=== PATIENT | male | born 1985 | race Caucasian/White ===

== ENCOUNTER 2018-10-22 19:19 | Emergency (ER) | payer BC ==
--- OUTSIDE RECORDS SUMMARY | 2018-10-22 19:42 | XMS REPORT ---
:1985 Author Organization [facility] Team Providers Name Role Phone Mauro Chino Unavailable Unavailable PROBLEMS Unknown Problems ALLERGIES No Information ENCOUNTERS Encounter Location Date Diagnosis [facility] [address] [place], [place] [address] [facility] [address] [facility] [place], [place] [address] [facility] [address] [place] [address] Sep, [place] [address] [facility] [address] [place] [address] [place] [address] [facility] [address] [place], [place] [address] [facility] [address] [place], [place], [place] [address] left, initial encounter T15.92XA and Foreign body, eye, right, initial encounter T15.91XA IMMUNIZATIONS No Known Immunizations SOCIAL HISTORY Never Assessed REASON FOR REFERRAL FUNCTIONAL STATUS PLAN OF CARE VITAL SIGNS MEDICATIONS Unknown Medications PROCEDURES Procedure Date Ordered Result Body Site LTD ORAL EVALUATION-PROBLEM FOCUS October 06, 2018 RESULTS No Results REASON FOR VISIT Insurance Providers [facility] Member Patient Patient Patient Patient Patient Subscriber Subscriber Subscriber Group Insurance Plan Plan Plan Plan ID Relationship Address Phone Name Date of ID Name Date of No Type Insurance Insurance Insurance Coverage to Subscriber Address Phone Name Dates Medicaid [id number] [phone] Medicaid self [place] [id number] [address] [facility] [address] [facility] [address] [address] Blue self [place] [id number] [place] [id number] Choice Opt [place] [address] [facility] [address] Blue [phone] Blue self [place] [id number] Choice Opt 9255 Attn 83 Choice Opt [place] [id number] [place] [id number] [place] [facility] [address]
[2018-10-22] MEDS ORDERED: Ondansetron ODT TAB* 4 MG PO ONE (21:22)
[2018-10-22] MEDS ORDERED: Ketorolac INJ* 30 MG/ML 1 ML VIAL IM ONE (21:22)
--- NOTE | 2018-10-22 21:43 | ED ---
Headache - HPI Summary HPI Summary: 33-year-old male presents with complaints of headache. States the headache has been intermittent over the past 3 days but today has become persistent. Describes the headache as a "tightness" that begins in the back of his head and wraps over the top. Associated with some mild nausea. Rates as a 5/10. Has taken ibuprofen 200 mg 1 dose with no relief. Denies fever, chills, URI symptoms, dizziness, lightheadedness, visual disturbances, slurred or difficulty speaking, weakness, numbness, or tingling of the extremities, abdominal pain, or vomiting. - History Of Current Complaint Chief Complaint: EDHeadache Stated Complaint: SHARP PAIN IN MY HEAD PER PT Time Seen by Provider: 10/22/18 21:14 Hx Obtained From: Patient - Allergies/Home Medications Allergies/Adverse Reactions: Allergies Allergy/AdvReac Type Severity Reaction Status Date / Time No Known Allergies Allergy Verified 10/22/18 19:34 PMH/Surg Hx/FS Hx/Imm Hx Previously Healthy: Yes - Denies sigificant PMH Psychiatric History: Reports: Hx Anxiety - Surgical History Surgical History: None Infectious Disease History: No Infectious Disease History: Denies: Traveled Outside the [place] in Last 30 Days - Family History Known Family History: Positive: Hypertension - Father - Social History Occupation: Employed Part-time Lives: With Family Alcohol Use: Occasionally Substance Use Type: Reports: Marijuana Smoking Status (MU): Never Smoked Tobacco Review of Systems Negative: Fever, Chills Negative: Photophobia, Blurred Vision, Diplopia Negative: Dental Pain, Sore Throat, Ear Ache, Nasal Discharge Cardiovascular: Negative Respiratory: Negative Gastrointestinal: Negative Genitourinary: Negative Musculoskeletal: Negative Skin: Negative Positive: Headache. Negative: Weakness, Paresthesia, Numbness, Syncope, Slurred Speech All Other Systems Reviewed And Are Negative: Yes Physical Exam - Summary Physical Exam Summary: GENERAL APPEARANCE: Well developed, well nourished, alert and cooperative, and appears to be in no acute distress. HEAD: Atraumatic. Normocephalic. EYES: Conjunctiva clear. No drainage. PERRL, EOM intact. Vision is grossly intact. NECK: Neck supple, non-tender. CARDIAC: Normal S1 and S2. No S3, S4 or murmurs. Rhythm is regular. There is no peripheral edema, cyanosis or pallor. Extremities are warm and well perfused. Capillary refill is less than 2 seconds. Peripheral pulses intact. LUNGS: Clear to auscultation without rales, rhonchi, wheezing or diminished breath sounds. ABDOMEN: Positive bowel sounds. Soft, nondistended, nontender. No guarding or rebound. No masses or hepatosplenomegally. MUSKULOSKELETAL: ROM intact to all extremities. No joint erythema or tenderness. Normal muscular development. Normal gait. NEUROLOGICAL: CN II-XII intact. Strength and sensation symmetric and intact throughout. Reflexes 2+ throughout. Cerebellar testing normal. SKIN: Skin normal color, texture and turgor with no lesions or eruptions. Triage Information Reviewed: Yes Vital Signs On Initial Exam: Initial Vitals Temp Pulse Resp BP Pulse Ox 98.9 F 90 16 156/97 99 10/22/18 19:30 10/22/18 19:30 10/22/18 19:30 10/22/18 19:30 10/22/18 19:30 Vital Signs Reviewed: Yes Diagnostics - Vital Signs Vital Signs Temp Pulse Resp BP Pulse Ox 10/22/18 19:30 98.9 F 90 16 156/97 99 - Laboratory Lab Statement: Any lab studies that have been ordered have been reviewed, and results considered in the medical decision making process. Re-Evaluation - Re-Evaluation First Eval Re-Evaluation Time: 22:25 Change: Improved Comment: Patient states that his headache is improving. Now rates as a 2-3/10. Nausea subsided. States he feels well enough for discharge and continued care at home. Headache Course/Dx - Course Course Of Treatment: 33-year-old male presents with complaints of headache. States the headache has been intermittent over the past 3 days but today has become persistent. Describes the headache as a "tightness" that begins in the back of his head and wraps over the top. Associated with some mild nausea. Rates as a 5/10. Has taken ibuprofen 200 mg 1 dose with no relief. Denies fever, chills, URI symptoms, dizziness, lightheadedness, visual disturbances, slurred or difficulty speaking, weakness, numbness, or tingling of the extremities, abdominal pain, or vomiting. Afebrile. Hypertensive otherwise vital signs stable. Patient was neurologically intact and had an overall unremarkable exam. He was given ketorolac 30 mg IM and ondansetron 4 mg PO with improvement in his symptoms. Based on his history and exam patient's symptoms are likely a tension type headache. Recommending conservative treatment with rest and [id number] analgesics. I have also provided him with a prescription for ondansetron 4 mg every 6 hours as needed for nausea and vomiting. He is to follow up with his primary care provider in 3-5 days especially if symptoms are not improving. Anticipatory guidance and warning symptoms were reviewed with the patient. Verbalizes understanding and agrees with plan of care. - Diagnoses Provider Diagnoses: Tension type headache Discharge - Sign-Out/Discharge Documenting (check all that apply): Patient Departure Patient Received Moderate/Deep Sedation with Procedure: No - Discharge Plan Condition: Stable Disposition: HOME Prescriptions: Ondansetron TAB* [Zofran 4 MG Tab*] 4 mg PO Q6H PRN #8 tab PRN Reason: Nausea/Vomiting Patient Education Materials: Tension Headache (ED) Referrals: Bradford HOPSON,Amish Hansen [Primary Care Provider] - 3 Days Additional Instructions: You history and exam are consistent with a tension-type headache. You were given an anti-inflammatory pain medication called ketorolac in the emergency room at around 9:30 pm. You should not take any other anti- inflammatory pain medication such as ibuprofen (Advil, Motrin), naproxen (Aleve) , or aspirin for at least 8 hours after receiving this medication. You were also given a medication called ondansetron for the nausea. I have sent a prescription to the pharmacy that you may use as needed for any nausea or vomiting. You may take 1 tablet every 6 hours as needed. Take ibuprofen 600 mg (3 tablets) every 8 hours with food as needed for headache. Follow-up with your primary care provider in 3-5 days especially if symptoms are not improving. Return to the emergency room if you have a worsening of the headache despite taking pain medication, have visual disturbances, become dizzy or lightheaded, develop confusion, have facial droop, slurred or difficulty speaking, numbness, tingling, or weakness of your arms or legs, or any worsening of symptoms. - Billing Disposition and Condition Condition: STABLE Disposition: Home - Attestation Statements Provider Attestation: pt seen by midlevel provider independently, based on their assessment, it was not necessary to present the case to me but I was available for consultation. I did not form a physician-patient relationship with the patient. The chart however, has been reviewed. am signing this note strictly in an administrative capacity.
[2018-10-22 22:43] VITALS: BP 128/74
== END 2018-10-22 22:42 | disposition home or self-care (01) ==
LOC: ED 19:19
DX: G44.209 Tension-type headache, unspecified, not intractable (principal); F41.9 Anxiety disorder, unspecified
CPT/HCPCS: 96372; 99282; A9270-GY; J1885

== ENCOUNTER 2019-01-27 19:37 | Emergency (ER) | payer BC ==
--- NOTE | 2019-01-27 20:01 | ED ---
Laceration/Wound HPI - History of Current Complaint Stated Complaint: LACERATION ON LEFT MIDDLE FINGER PER PT Time Seen by Provider: 01/27/19 20:01 Pain Intensity: 8 - Allergy/Home Medications Allergies/Adverse Reactions: Allergies Allergy/AdvReac Type Severity Reaction Status Date / Time No Known Allergies Allergy Verified 10/22/18 19:34 PMH/Surg Hx/FS Hx/Imm Hx Psychiatric History: Reports: Hx Anxiety Infectious Disease History: No Infectious Disease History: Denies: Traveled Outside the [place] in Last 30 Days - Family History Known Family History: Positive: Hypertension - Father - Social History Alcohol Use: Occasionally Substance Use Type: Reports: Marijuana Smoking Status (MU): Never Smoked Tobacco Physical Exam Vital Signs On Initial Exam: Initial Vitals Temp Pulse Resp BP Pulse Ox 99.0 F 78 18 163/74 98 01/27/19 19:39 01/27/19 19:39 01/27/19 19:39 01/27/19 19:39 01/27/19 19:39 Diagnostics - Vital Signs Vital Signs Temp Pulse Resp BP Pulse Ox 01/27/19 19:39 99.0 F 78 18 163/74 98 - Laboratory Lab Statement: Any lab studies that have been ordered have been reviewed, and results considered in the medical decision making process. Discharge ED - Discharge Plan Referrals: Bradford HOPSON,Amish Hansen [Primary Care Provider] -
[2019-01-27] MEDS ORDERED: Lidocaine 1% INJ* 10 MG/ML 30 ML SDV INJ ONE (20:03)
[2019-01-27] MEDS ORDERED: Tetan/Diph/Pertus SYR(Tdap)* 0.5 ML SYR(BOOSTRIX) use SYR contains LATEX IM ONE (20:04)
--- NOTE | 2019-01-27 20:17 | ED ---
Laceration/Wound HPI - HPI Summary HPI Summary: Patient is a 33 y/o M presenting to [facility] with lacerations of 2nd and 3rd finger of the left hand. He states that earlier today, 01/27/19, he was attempting to grind down the weld of an exhaust pipe. He reports that his hand got sucked into the lens grinder and his fingers were cut as a result. Last tetanus was last year, 2017. On triage, pain is rated 8/10, movement is noted to aggravate Sx, relaxation is noted to alleviate Sx. Home medications and allergies are reviewed. - History of Current Complaint Stated Complaint: LACERATION ON LEFT MIDDLE FINGER PER PT Time Seen by Provider: 01/27/19 20:01 Hx Obtained From: Patient Onset/Duration: Still Present Aggravating: Movement Alleviating: Other - relaxation Timing: Constant Current Severity: Severe Pain Intensity: 8 Pain Scale Used: 0-10 Numeric Associated Signs & Symptoms: Pain - Allergy/Home Medications Allergies/Adverse Reactions: Allergies Allergy/AdvReac Type Severity Reaction Status Date / Time No Known Allergies Allergy Verified 10/22/18 19:34 Home Medications: Home Medications Clindamycin HCl 150 mg PO TID 01/27/19 [History Confirmed 01/27/19] Lidocaine PATCH 5%* [Lidoderm 5% Patch*] 1 patch TRANSDERM DAILY 01/27/19 [ History Confirmed 01/27/19] PMH/Surg Hx/FS Hx/Imm Hx Sensory History: Denies: Hx Legally Blind, Hx Deafness Opthamlomology History: Denies: Hx Legally Blind EENT History: Denies: Hx Deafness Psychiatric History: Reports: Hx Anxiety - Immunization History Immunizations Up to Date: Yes Infectious Disease History: No Infectious Disease History: Denies: Traveled Outside the [place] in Last 30 Days - Family History Known Family History: Positive: Hypertension - Father - Social History Alcohol Use: Occasionally Substance Use Type: Reports: Marijuana Smoking Status (MU): Never Smoked Tobacco Review of Systems Negative: Fever - on vitals, temp is 99 F Skin: Other - positive - 2nd and 3rd finger laceration of left hand All Other Systems Reviewed And Are Negative: Yes Physical Exam - Summary Physical Exam Summary: Constitutional: Well-developed, Well-nourished, Alert. (-) Distressed Skin: 2 cm horizontal laceration of the 2nd left finger, palmar aspect of the distal pad, that appears superficial. There is a U-shaped laceration to the left 3rd finger that wraps around the crease of the DIP joint. Bleeding is controlled. Warm, Dry HENT: Normocephalic; Atraumatic Eyes: Conjunctiva normal Neck: Musculoskeletal ROM normal neck. (-) JVD, (-) Stridor, (-) Tracheal deviation Cardio: Rhythm regular, rate normal, Heart sounds normal; Intact distal pulses; The pedal pulses are 2+ and symmetric. Radial pulses are 2+ and symmetric. Pulmonary/Chest wall: Effort normal. (-) Respiratory distress, (-) Wheezes, (-) Rales Abd: Soft, (-) tenderness, (-) Distension, (-) Guarding, (-) Rebound Musculoskeletal: Patient has strength and flexion of DIP, MIP, and PIP joint intact at the left 3rd finger. He is able to flex and extend all of these joints independently. (-) Edema Neuro: Alert, Oriented x3 Psych: Mood and affect Normal Triage Information Reviewed: Yes Vital Signs On Initial Exam: Initial Vitals Temp Pulse Resp BP Pulse Ox 99.0 F 78 18 163/74 98 01/27/19 19:39 01/27/19 19:39 01/27/19 19:39 01/27/19 19:39 01/27/19 19:39 Vital Signs Reviewed: Yes Procedures - Procedure Summary Procedure Summary: Lidocaine 1% without epi was administered as digital block to left 2nd and 3rd fingers. 3rd finger was irrigated with saline, dirt was cleaned out of the laceration. 11 4-0 Nylon sutures were applied to 3rd finger. There was a small arterial bleed for one second that was controlled with direct pressure and did not occur again at any point. The tip of the 3rd finger has immediate cap refill , distal perfusion is intact. The pad of the finger is well adhered. Left 2nd finger was cleaned with saline, skin avulsion that does not go through the dermis was noted. No sutures to 2nd left finger. - Sedation Patient Received Moderate/Deep Sedation with Procedure: No - Laceration/Wound Repair 1 Location: upper extremity - left index finger Description: Joint Proximity - U-shaped laceration along crease of DIP joint Anesthesia: Digital, 1.0%, Lido Laceration/Wound Explored: Other - dirt was irrigated out of laceration Closure: Single Layer Suture Type: Nylon - 4-0 Number of Sutures: 11 Layer Closure?: Yes Sterile Dressing Applied?: Yes Diagnostics - Vital Signs Vital Signs Temp Pulse Resp BP Pulse Ox 01/27/19 19:39 99.0 F 78 18 163/74 98 - Laboratory Lab Statement: Any lab studies that have been ordered have been reviewed, and results considered in the medical decision making process. - Radiology LEFT MIDDLE FINGER X-RAY Radiology Interpretation Completed By: ED Physician Summary of Radiographic Findings: There is a superficial foreign body noted, no fracture, no dislocation, pending official report. Re-Evaluation - Re-Evaluation First Eval Re-Evaluation Time: 21:40 Change: Improved Comment: Sutures completed, patient to be discharged. Laceration Repair Course/Dx - Course Course Of Treatment: Patient is a 33 y/o M presenting to [facility] with lacerations of 2nd and 3rd finger of the left hand. He reports that his hand got sucked into a lens grinder and his fingers were cut as a result. Last tetanus was last year , 2017. 2 cm horizontal laceration of the 2nd left finger, palmar aspect of the distal pad, that appears superficial. There is a horizontal laceration to the left 3rd finger that wraps around the crease of the DIP joint. Bleeding is controlled. Patient has strength and flexion of DIP, MIP, and PIP joint intact at the left 3rd finger. He is able to flex and extend all of these joint independently. On left middle finger x-ray, there is a superficial foreign body noted, no fracture, no dislocation. Lidocaine 1% without epi was administered as digital block to left 2nd and 3rd fingers. 3rd finger was irrigated with saline, dirt was cleaned out of the laceration. 11 4-0 Nylon sutures were applied to 3rd finger. There was a small arterial bleed for one second that was controlled with direct pressure and did not occur again at any point. The tip of the 3rd finger has immediate cap refill, distal perfusion is intact. The pad of the finger is well adhered. Left 2nd finger was cleaned with saline, skin avulsion that does not go through the dermis was noted. No sutures to 2nd left finger. Patient was prescribed Keflex for five days with first dosage of 500 mg having been given in ED. Patient will follow up with PCP in two days for wound recheck and will have stitches out in 7-10 days. He is agreeable with this plan. - Clinical Impression Provider Diagnoses: Laceration of left middle finger, Avulsion of skin of finger Discharge ED - Sign-Out/Discharge Documenting (check all that apply): Patient Departure - discharge - Discharge Plan Condition: Improved Disposition: HOME Prescriptions: Cephalexin CAP* [Keflex CAP*] 500 mg PO QID 5 Days #19 cap Patient Education Materials: Laceration (ED) Referrals: Bradford HOPSON,Amish Hansen [Primary Care Provider] - Additional Instructions: no use of L hand until sutures removed and cleared by PCP 2 day PCP f/up for wound check 7-10 day PCP f/up for suture removal - Billing Disposition and Condition Condition: IMPROVED Disposition: Home - Attestation Statements Document Initiated by Jasper: Yes Documenting Scribe: FEDERICO OLVERA Provider For Whom Scribe is Documenting (Include Credential): MARIA D ELIAS MD Scribe Attestation: FEDERICO Mac, scribed for MARIA D ELIAS MD on 01/28/19 at 0716. Scribe Documentation Reviewed: Yes Provider Attestation: The documentation as recorded by the heshamibFEDERICO craig accurately reflects the service I personally performed and the decisions made by me, MARIA D ELIAS MD Status of Scribe Document: Viewed
[2019-01-27] MEDS ORDERED: Cephalexin CAP* 500 MG PO ONE (21:38)
[2019-01-27 22:00] VITALS: BP 137/77
== END 2019-01-27 22:00 | disposition home or self-care (01) ==
LOC: ED 19:37
DX: S61.211A Laceration without foreign body of left index finger without damage to nail, initial encounter (principal); S61.213A Laceration without foreign body of left middle finger without damage to nail, initial encounter; W29.8XXA Contact with other powered hand tools and household machinery, initial encounter; Y92.9 Unspecified place or not applicable
CPT/HCPCS: 12041; 73140; 90715; 99282; A9270-GY